=== PATIENT | female | born 1980 | race Caucasian/White ===

== ENCOUNTER 2019-02-24 06:41 | Day surgery (SDC) | payer OTHER ==
[2019-02-17 14:27] VITALS: BMI 27.4
--- NOTE | 2019-02-20 15:45 | HP ---
Admitting History and Physical - Primary Care Physician PCP: Danielle Mena - Admission Chief Complaint: Left breast fibroadenoma R/O phylloides tumor History of Present Illness: 39 year old prmenapausal female with family H/O breast cancer. She had a a left breast US showing mutiple stable nodules except for 3:00 periareolar nodule has increased in size measuring 1.8x.9x1.7 cm. Breast MRI Birad 2. Left core bx 2012 showed fibroadenoma History Source: Patient Limitations to Obtaining History: No Limitations - Past Medical History ACUTE CARE PHYSICAL THERAPIST: Yes: Migraine Gastrointestinal: Yes: GERD ...LMP: 02/05/19 - Past Surgical History Additional Past Surgical History: Right breast WE x2 fibroadenoma 1998 Bilateral breast reduction 2002 left core bx 2012 fibroadenoma - Advance Directives Advance Directives: Yes: Organ Donor - Smoking History Smoking history: Never smoked Have you smoked in the past 12 months: No - Alcohol/Substance Use Hx Alcohol Use: Yes (social) Home Medications - Allergies Allergies/Adverse Reactions: Allergies Allergy/AdvReac Type Severity Reaction Status Date / Time Sulfa (Sulfonamide Allergy Rash Verified 02/17/19 14:32 Antibiotics) - Home Medications Home Medications: Ambulatory Orders Eletriptan HBr [Relpax] 20 mg PO PRN PRN 02/17/19 Escitalopram Oxalate [Lexapro -] 20 mg PO DAILY 02/17/19 Norgestrel-Ethinyl Estradiol [Cryselle-28 Tablet] 1 each PO DAILY 02/17/19 Omeprazole 20 mg PO DAILY 02/17/19 clonazePAM [Klonopin -] 0.5 mg PO PRN PRN 02/17/19 propRANOLol HCL [Inderal *LA*] 80 mg PO DAILY 02/17/19 Family Disease History - Family Disease History Family Disease History: CA: Grandparent (pat GM breast ca 71), Father (renal cell ca ), Mother (breast ca 59) Physical Examination Constitutional: Yes: No Distress Breast(s): Yes: Other (diffusely nodular and dense S/P reduction healed scars.Left breast at 3:00 retroareolar region 1.5 cm rubbery mass consistent with fibroadenoma) Problem List - Problems (1) Fibroadenoma of left breast Code(s): D24.2 - BENIGN NEOPLASM OF LEFT BREAST Assessment/Plan Left breast wide excision with Us localization
[2019-02-24] MEDS ORDERED: LIDOCAINE HCL 1% PRESERVATIVE FREE - 30ML VIAL ONE (09:40)
[2019-02-24] MEDS ORDERED: BUPIVACAINE HCL/PF 2.5 MG/ML - 30 ML VIAL IJ ONE (09:40)
[2019-02-24] MEDS ORDERED: MIDAZOLAM HCL 2 MG/2 ML SINGLE DOSE VIAL ONE (09:43)
[2019-02-24] MEDS ORDERED: PROPOFOL 20 ML ONE ×3 (09:43)
[2019-02-24] MEDS ORDERED: fentaNYL CITRATE 250 MCG/5 ML VIAL ONE (09:43)
[2019-02-24] MEDS ORDERED: SUCCINYLCHOLINE CHLORIDE 200 MG/10 ML VIAL ONE (09:44)
[2019-02-24] MEDS ORDERED: LIDOCAINE HCL/PF 2% SDV 5ML VIAL ONE (09:44)
[2019-02-24] MEDS ORDERED: ROCURONIUM BROMIDE 50 MG/5 ML VIAL ONE (09:44)
[2019-02-24] MEDS ORDERED: ONDANSETRON 4 MG/2 ML VIAL IVPUSH PRN ×2 (10:19→11:04)
[2019-02-24] MEDS ORDERED: KETOROLAC TROMETHAMINE 30 MG/1 ML VIAL IVPUSH PRN (10:19)
[2019-02-24] MEDS ORDERED: MINERAL OIL/PETROLATUM,WHITE 3.5 GM TUBE ONE (10:24)
[2019-02-24] MEDS ORDERED: DEXAMETHASONE SOD PHOSPHATE 4 MG/1 ML VIAL ONE (10:24)
[2019-02-24] MEDS ORDERED: DEXTROSE 5%-0.45% SALINE 1,000 ML IV SCH (10:30)
[2019-02-24] MEDS ORDERED: KETOROLAC TROMETHAMINE 30 MG/1 ML VIAL ONE (10:42)
[2019-02-24] MEDS ORDERED: ACETAMINOPHEN INJECTION 100 ML IVPB ONE (11:00)
[2019-02-24] MEDS ORDERED: oxyCODONE HCL 5 MG TABLET PO PRN (11:04)
[2019-02-24] MEDS ORDERED: ACETAMINOPHEN 1000 MG/100 ML VIAL (NON FORMULARY) IVPB ONE (11:05)
[2019-02-24] MEDS ORDERED: LACTATED RINGERS SOLUTION 1,000 ML IV SCH (11:15)
[2019-02-24] MEDS ORDERED: ONDANSETRON 4 MG/2 ML VIAL ONE (11:22)
--- NOTE | 2019-02-24 11:45 | OP ---
DATE OF OPERATION: 02/24/2019 PREOPERATIVE DIAGNOSIS: Left breast mass, enlarging, fibroadenoma. POSTOPERATIVE DIAGNOSIS: Left breast mass, enlarging, fibroadenoma. PROCEDURE PERFORMED: Left breast partial mastectomy. ANESTHESIA: General, intubated. ATTENDING SURGEON: Danielle Mena MD ESTIMATED BLOOD LOSS: Minimal. COMPLICATIONS: None. DESCRIPTION OF PROCEDURE: The patient was made aware of the risks and benefits of the procedure and consented. She was placed in the supine position, after going to Radiology, where, under ultrasound guidance, a needle and wire were placed next to the indexed lesion. After general anesthesia was induced, the patient was intubated. The operative site was prepped and draped in the usual sterile fashion. A curvilinear periareolar incision was made using electrocautery. Thick skin flaps were made. The needle was puncture site and the wire through the wound. Tissues around the wire were then sharply excised and submitted with a short suture superior and long suture lateral. Since it was obvious at this point that we had a complete nodule, no specimen radiogram was performed. The wound was copiously irrigated with normal saline and hemostasis maintained by electrocautery. The wound was then closed with deep 3-0 Vicryl and a deep dermal interrupted 3-0 Vicryl, followed by Dermabond. The margarita-incisional tissue was then locally infiltrated with a 1:1 mixture of 1% lidocaine and 0.5% Bupivacaine. A sterile dressing was then applied. The patient, having tolerated the procedure, was transferred to the recovery room in excellent condition. DANIELLE MENA M.D. [id number]
[2019-02-24 12:42] VITALS: TEMP 98.1
[2019-02-24] MEDS ORDERED: oxyCODONE HCL 5 MG TABLET ONE (12:58)
[2019-02-24 14:19] VITALS: BP 99/59; PULSE 78
--- NOTE | 2019-02-26 16:23 | PATH ---
Surgical Pathology Report Patient Name: WARREN GOODE [facility]. Rec. #: [id number] /Age/Gender: 1980 (Age: 39) / F Account: [id number] Location: [facility] Taken: 02/24/2019 Received: 02/24/2019 Reported: 02/26/2019 Physicians: Danielle Mena M.D. Specimen(s) Received LEFT BREAST WIDE EXCISION Clinical History Fibroadenoma by prior biopsy Final Diagnosis LEFT BREAST WIDE EXCISION: FIBROADENOMA. ADJACENT BENIGN BREAST TISSUE SHOWING MILD USUAL DUCTAL HYPERPLASIA (UDH) AND STROMAL FIBROSIS. Electronically Signed No Herrera M.D. Gross Description Received in formalin labeled "left breast wide excision," is a 2.1 x 1.7 x 1.3 cm portion of fibroadipose tissue with a short suture marking the superior aspect and a long suture marking the lateral aspect of the specimen, per the surgeon. There is no needle localization wire present. There is no skin or nipple present. The specimen is inked as follows: Superior and lateral blue; inferior green; medial yellow; anterior red; deep black. The specimen is serially sectioned from lateral to medial. Sectioning reveals diffuse dense white, rubbery fibrous tissue. The specimen is entirely and sequentially submitted in 6 cassettes with a lateral margin in cassette 1 and the medial margin in cassette 6. Time to formalin fixation: 1 minute Total formalin fixation time: Approximately 31 hours. /02/25/2019 [facility]02/25/2019
== END 2019-02-24 14:05 | disposition home or self-care (01) ==
LOC: FASU 06:41
PROVIDERS: ATTEND Surgery Surgical Oncology
PROC: 0HBU0ZZ Excision of Left Breast, Open Approach (ICD-10-PCS; principal; 2019-02-24 10:29)
DX: D24.2 Benign neoplasm of left breast (principal); N60.82 Other benign mammary dysplasias of left breast; N60.32 Fibrosclerosis of left breast
CPT/HCPCS: 19281; 84703; 88307-TC; 94760; J0131